=== PATIENT | male | born 1960 | race African-American/Black ===

== ENCOUNTER 2016-12-05 14:15 | Emergency (ER) | payer MEDICARE | END 2016-12-05 15:42 | disposition home or self-care (01) | LOC: ER 14:15 | DX: J45.909 Unspecified asthma, uncomplicated (principal); I10 Essential (primary) hypertension; Z86.73 Personal history of transient ischemic attack (TIA), and cerebral infarction without residual deficits; Z79.899 Other long term (current) drug therapy; Z88.8 Allergy status to other drugs, medicaments and biological substances | CPT/HCPCS: 36415; 96374 ==